=== PATIENT | male | born 1945 | race Caucasian/White ===

== ENCOUNTER → 2021-01-15 | Outpatient (CLI) | payer MEDICARE, BC ==
[~2021-01-15] MED LIST: 24HR ALLERGY REL5 MG PO; ACID CONTROL150 MG PO; ALFUZOSIN HCL E10 MG PO; AREDS PO; ASPIR-LOW81 MG PO; ATORVASTATIN CA20 MG PO; CBD PO; CENTRUM SILVER1 EAC1 PO; CINNAMON500 MG PO; CO Q-10100 MG PO; CORGARD20 MG PO; COUMADIN5 MG PO; ELAVIL 25 MG TA25 MG PO; FLEXERIL 10 MG10 MG PO; FOLIC ACID0.4 MG PO; IMDUR ER TAB 3030 MG PO; LISINOPRIL-HCT1 EAC1 PO; MILK THISTLE140 M1 PO; NAPROSYN500 MG PO; NITROSTAT0.4 MG SL; PLAVIX 75 MG TA75 MG PO; PRINIVIL10 MG PO; PROAIR HFA8.5 GM INH; SINGULAIR10 MG PO; TUMERIC PO; VITAMIN B-121000 MCG PO; VITAMIN B-1250 MCG PO; VITAMIN D250000 UNIT PO; ZOCOR 10 MG TAB10 MG PO; [UNRECOGNIZED DRUG - OTHER] PO; [UNRECOGNIZED DRUG - OTHER] PO; [UNRECOGNIZED DRUG - OTHER] PO
== END ==
LOC: EXRD 08:00
DX: K74.60 Unspecified cirrhosis of liver (principal)
CPT/HCPCS: 76700

== ENCOUNTER → 2021-07-21 | Outpatient (CLI) | payer MEDICARE, BC | LOC: EXRD 08:49 | DX: Z13.6 Encounter for screening for cardiovascular disorders (principal); M85.89 Other specified disorders of bone density and structure, multiple sites; Z87.891 Personal history of nicotine dependence; M85.852 Other specified disorders of bone density and structure, left thigh | CPT/HCPCS: 76706; 77080 ==

== ENCOUNTER → 2021-12-29 | Outpatient (CLI) | payer MEDICARE, BC | LOC: ECHO 12:00 → NM 13:00 | DX: I25.118 Atherosclerotic heart disease of native coronary artery with other forms of angina pectoris (principal); R06.02 Shortness of breath | CPT/HCPCS: ECHO; 78452; 93306; A9502; J2785 ==